=== PATIENT | female | born 1940 | race Caucasian/White ===

== ENCOUNTER 2023-09-19 18:03 | Observation (INO) | payer OTHER ==
[~2023-09-19] VITALS: Ht 154.9 cm; Wt 93.9 kg
[2023-09-19 18:05] VITALS: BP_SYST 132; PULSE 90; RESP 18; TEMP 97.2; O2SAT 96
[2023-09-19] MEDS ORDERED: iohexoL 350 mgI/mL, 100 ML INFUS..BTL IV ONE (18:20)
[2023-09-19 19:44] LABS: BASOPHILS % (AUTO) 0.4 % (0.0-2.0); EOSINOPHILS # (AUTO) 0.4 K/uL (0.0-0.4); EOSINOPHILS % (AUTO) 4.6 % (0.0-4.0); HEMOGLOBIN 14.2 g/dL (12.0-16.0); LYMPHOCYTES # (AUTO) 3.4 K/uL (1.0-5.5); LYMPHOCYTES % (AUTO) 43.7 % (20.5-51.5); MEAN CORPUSCULAR HEMOGLOBIN 29 pg (27-31); MEAN CORPUSCULAR HGB CONC 32 % (32-36); MEAN CORPUSCULAR VOLUME 89 fL (79.0-98.0); MONOCYTES # (AUTO) 0.5 K/uL (0.0-1.0); MONOCYTES % (AUTO) 6.6 % (1.7-9.3); NEUTROPHILS # (AUTO) 3.5 K/uL (1.8-7.7); NEUTROPHILS % (AUTO) 44.7 % (40.0-70.0); PLATELET COUNT (AUTO) 215 K/uL (130-430); RED BLOOD CELL COUNT(AUTO) 4.95 MIL/uL (4.2-6.2); RED CELL DISTRIBUTION WIDTH 14.6 % (9.0-15.0); WHITE BLOOD COUNT (AUTO) 7.8 K/uL (4.8-10.8)
[2023-09-19 20:04] LABS: INR 1.1 (0.8-1.2); PROTHROMBIN TIME 11.4 SECS (9.5-12.5)
[2023-09-19 20:41] LABS: ALANINE AMINOTRANSFERASE 30 U/L (12-78); ALBUMIN 3.6 g/dL (3.4-4.8); ANION GAP 8 (5-15); ASPARTATE AMINOTRANSFERASE 21 U/L (10-37); CALCIUM 9.5 mg/dL (8.4-11.0); CARBON DIOXIDE 30 mmol/L (23-29); CHLORIDE 100 mmol/L (98-107); CREATININE 1.06 mg/dL (0.55-1.30); GLUCOSE 119 mg/dL (74-106); POTASSIUM 3.4 mmol/L (3.5-5.1); SODIUM SERUM 138 mmol/L (136-145); TOTAL BILIRUBIN 0.4 mg/dL (0.0-1.0); TOTAL PROTEIN, SERUM 7.1 g/dL (6.4-8.3); UREA NITROGEN, BLOOD 18 mg/dL (8-21)
[2023-09-19 20:44] LABS: BILIRUBIN,DIRECT 0.1 mg/dL (0.0-0.3)
[2023-09-19] MEDS ORDERED: ASPIRIN 325 MG TABLET PO ONE (21:00)
[2023-09-19 21:03] LABS: HEMOGLOBIN A1C 5.72 % (<5.7)
[2023-09-19 21:21] LABS: CHOLESTEROL 181 mg/dL (<200); HDL CHOLESTEROL 65 mg/dL (>55); TRIGLYCERIDES 191 mg/dL (30-150)
[2023-09-19] MEDS ORDERED: APIXABAN 2.5 MG TABLET PO ONE (21:30)
[2023-09-19] MEDS ORDERED: LEVO88TA5 PO (21:35)
[2023-09-19] MEDS ORDERED: MULT400T5 PO (21:35)
[2023-09-19] MEDS ORDERED: DILT180C67 PO (21:35)
[2023-09-19] MEDS ORDERED: HYDR-3917 PO (21:35)
[2023-09-19] MEDS ORDERED: APIX5TAB PO (21:35)
[2023-09-19] MEDS ORDERED: DOCU-156 PO (21:35)
[2023-09-19] MEDS ORDERED: FAMO-132 PO (21:35)
[2023-09-19] MEDS ORDERED: POLY119P3 PO (21:35)
[2023-09-19] MEDS ORDERED: LIP20 PO (21:35)
[2023-09-19] MEDS ORDERED: ACT35 PO (21:35)
[2023-09-19] MEDS ORDERED: NALO12.52 PO (21:35)
[2023-09-19 22:05] LABS: BILIRUBIN,URINE NEGATIVE (NEGATIVE); CLARITY/URINE CLEAR (CLEAR); COLOR,URINE YELLOW (YELLOW); GLUCOSE,URINE NEGATIVE (NEGATIVE); KETONES,URINE NEGATIVE (NEGATIVE); LEUKOCYTE ESTERASE ,URINE NEGATIVE (NEGATIVE); NITRITE, URINE NEGATIVE (NEGATIVE); PROTEIN URINE NEGATIVE (NEGATIVE); UROBILINOGEN,URINE 0.2 (0.2-1.0)
[2023-09-19 23:05] VITALS: BP_SYST 129; PULSE 91; RESP 19; TEMP 97.1
[2023-09-19 23:31] LABS: BARBITURATE, URINE NEGATIVE (NEG <=200); BENZODIAZEPINE, URINE NEGATIVE (NEG <=150); CANNABINOID, URINE NEGATIVE (NEG <=50); COCAINE, URINE NEGATIVE (NEG <=150); METHAMPHETAMINES SCREEN,URINE NEGATIVE (NEG <=500); OPIATE, URINE NEGATIVE (NEG <=100); PHENCYCLIDINE SCREEN,URINE NEGATIVE (NEG <=25); UR TRICYCLIC ANTIDEPRESSANTS NEGATIVE (NEG <=300); URINE AMPHETAMINE NEGATIVE (NEG <=500); URINE METHADONE NEGATIVE (NEG <=200); URINE OXYCODONE SCREEN NEGATIVE (NEG <=100); URINE PROPOXYPHENE SCREEN NEGATIVE (NEG <=300)
[2023-09-19 23:35] LABS: BLOOD, URINE TRACE (NEGATIVE)
[2023-09-19 23:49] LABS: BACTERIA,URINE FEW /HPF (None Seen); RBC,URINE 0-3 /HPF (0-3); WBC,URINE 0-3 /HPF (0-3)
[2023-09-19 23:50] LABS: MUCUS,URINE None Seen /LPF (None Seen); URIC ACID CRYSTALS,URINE 0-10 /HPF (None Seen)
[2023-09-20] VITALS: BP_SYST 129; PULSE 91; RESP 19; TEMP 97.1; O2SAT 94
[2023-09-20] MEDS: 0.45% NACL 1,000 ML IV SCH ×2 (00:34→23:00)
[2023-09-20 08:00] VITALS: BP_SYST 119; RESP 16; TEMP 97.2; O2SAT 95
[2023-09-20] MEDS ORDERED: DILTIAZEM HCL 180 MG CAP.SR.24H PO ONE (10:30)
[2023-09-20] MEDS ORDERED: LEVOTHYROXINE SODIUM 0.088 MG TABLET PO ONE (10:30)
[2023-09-20] MEDS ORDERED: APIXABAN 2.5 MG TABLET PO ONE (10:30)
[2023-09-20] MEDS ORDERED: ATORVASTATIN 20 MG TABLET PO ONE (10:30)
[2023-09-20] MEDS ORDERED: FAMOTIDINE 20 MG TABLET PO ONE (10:30)
[2023-09-20 10:35] LABS: BASOPHILS % (AUTO) 0.4 % (0.0-2.0); EOSINOPHILS # (AUTO) 0.2 K/uL (0.0-0.4); EOSINOPHILS % (AUTO) 3.1 % (0.0-4.0); HEMATOCRIT 45.2 % (36-48); HEMOGLOBIN 14.7 g/dL (12.0-16.0); LYMPHOCYTES # (AUTO) 1.6 K/uL (1.0-5.5); LYMPHOCYTES % (AUTO) 24.2 % (20.5-51.5); MEAN CORPUSCULAR HEMOGLOBIN 29 pg (27-31); MEAN CORPUSCULAR HGB CONC 32 % (32-36); MEAN CORPUSCULAR VOLUME 89 fL (79.0-98.0); MONOCYTES # (AUTO) 0.5 K/uL (0.0-1.0); NEUTROPHILS # (AUTO) 4.3 K/uL (1.8-7.7); NEUTROPHILS % (AUTO) 65.3 % (40.0-70.0); PLATELET COUNT (AUTO) 194 K/uL (130-430); RED BLOOD CELL COUNT(AUTO) 5.08 MIL/uL (4.2-6.2); WHITE BLOOD COUNT (AUTO) 6.6 K/uL (4.8-10.8)
[2023-09-20 10:54] LABS: ALANINE AMINOTRANSFERASE 23 U/L (12-78); ALBUMIN 3.3 g/dL (3.4-4.8); ANION GAP 10 (5-15); ASPARTATE AMINOTRANSFERASE 19 U/L (10-37); CALCIUM 9.2 mg/dL (8.4-11.0); CARBON DIOXIDE 28 mmol/L (23-29); CHLORIDE 101 mmol/L (98-107); GLUCOSE 117 mg/dL (74-106); POTASSIUM 3.5 mmol/L (3.5-5.1); SODIUM SERUM 139 mmol/L (136-145); TOTAL BILIRUBIN 0.4 mg/dL (0.0-1.0); TOTAL PROTEIN, SERUM 6.7 g/dL (6.4-8.3); UREA NITROGEN, BLOOD 13 mg/dL (8-21)
[2023-09-20 13:13] VITALS: BP_SYST 124; RESP 16; TEMP 97.6; O2SAT 96
[2023-09-20 16:59] VITALS: BP_SYST 132; PULSE 92; RESP 20; TEMP 97.4; O2SAT 97
[2023-09-20] MEDS: FAMOTIDINE 20 MG TABLET PO SCH (20:50)
[2023-09-20] MEDS: APIXABAN 2.5 MG TABLET PO SCH (20:53)
[2023-09-21 00:15] VITALS: BP_SYST 124; PULSE 84; RESP 18; TEMP 97.4; O2SAT 93
[2023-09-21] MEDS ORDERED: LEVOTHYROXINE SODIUM 0.088 MG TABLET PO SCH (06:00)
[2023-09-21 07:59] VITALS: BP_SYST 140; PULSE 90; RESP 17; TEMP 96.8; O2SAT 95
[2023-09-21 08:02] LABS: BASOPHILS % (AUTO) 0.5 % (0.0-2.0); EOSINOPHILS # (AUTO) 0.4 K/uL (0.0-0.4); EOSINOPHILS % (AUTO) 5.1 % (0.0-4.0); HEMATOCRIT 42.3 % (36-48); HEMOGLOBIN 13.6 g/dL (12.0-16.0); LYMPHOCYTES # (AUTO) 2.3 K/uL (1.0-5.5); LYMPHOCYTES % (AUTO) 31.4 % (20.5-51.5); MEAN CORPUSCULAR HEMOGLOBIN 29 pg (27-31); MEAN CORPUSCULAR HGB CONC 32 % (32-36); MEAN CORPUSCULAR VOLUME 89 fL (79.0-98.0); MONOCYTES # (AUTO) 0.6 K/uL (0.0-1.0); MONOCYTES % (AUTO) 8.3 % (1.7-9.3); NEUTROPHILS # (AUTO) 4.1 K/uL (1.8-7.7); NEUTROPHILS % (AUTO) 54.7 % (40.0-70.0); PLATELET COUNT (AUTO) 202 K/uL (130-430); RED BLOOD CELL COUNT(AUTO) 4.78 MIL/uL (4.2-6.2); RED CELL DISTRIBUTION WIDTH 14.7 % (9.0-15.0); WHITE BLOOD COUNT (AUTO) 7.4 K/uL (4.8-10.8)
[2023-09-21 08:10] LABS: ALANINE AMINOTRANSFERASE 25 U/L (12-78); ALBUMIN 3.1 g/dL (3.4-4.8); ANION GAP 6 (5-15); ASPARTATE AMINOTRANSFERASE 16 U/L (10-37); CALCIUM 8.8 mg/dL (8.4-11.0); CARBON DIOXIDE 29 mmol/L (23-29); CHLORIDE 106 mmol/L (98-107); CREATININE 0.85 mg/dL (0.55-1.30); GLUCOSE 97 mg/dL (74-106); SODIUM SERUM 141 mmol/L (136-145); TOTAL BILIRUBIN 0.3 mg/dL (0.0-1.0); TOTAL PROTEIN, SERUM 6.2 g/dL (6.4-8.3); UREA NITROGEN, BLOOD 15 mg/dL (8-21)
[2023-09-21 08:50] VITALS: TEMP 96.9
[2023-09-21] MEDS ORDERED: ATORVASTATIN 20 MG TABLET PO SCH (09:00)
[2023-09-21] MEDS ORDERED: DILTIAZEM HCL 180 MG CAP.SR.24H PO SCH (09:00)
[2023-09-21] MEDS: FAMOTIDINE 20 MG TABLET PO SCH (09:30)
[2023-09-21] MEDS: APIXABAN 2.5 MG TABLET PO SCH (09:32)
[2023-09-21 12:00] VITALS: BP_SYST 132; PULSE 88; RESP 19; TEMP 97; O2SAT 97
[2023-09-21 13:27] VITALS: BP_SYST 140; PULSE 90; RESP 17; TEMP 96.9; O2SAT 95
== END 2023-09-21 13:46 | disposition home health service (06) ==
LOC: SED 18:03 → SMU 21:21 → STU 09-20 15:45
PROVIDERS: ADMIT Specialist; ATTEND Specialist
DX: G45.9 Transient cerebral ischemic attack, unspecified (principal); I48.91 Unspecified atrial fibrillation; E87.6 Hypokalemia; E78.1 Pure hyperglyceridemia; I69.354 Hemiplegia and hemiparesis following cerebral infarction affecting left non-dominant side; E03.9 Hypothyroidism, unspecified; Z79.899 Other long term (current) drug therapy; Z79.01 Long term (current) use of anticoagulants
CPT/HCPCS: 80307; 80076; 80061; 80048; 81000; 81015; 81001; 82962; 83037; 85025 ×3; 85610; 85730; 86886; 86900; 86901; 84484; 36415 ×3; 93005 ×2; 71045; 70450; 70496; 70498; 76376; 93880; 99291; 96360; 96361; 80053 ×2; 93306; 97112; 97530; 97162; 92610; 96366; Q9967; G0378 ×3